=== PATIENT | male | born 1980 | race Caucasian/White ===

== ENCOUNTER 2017-12-13 08:05 | Emergency (ER) | payer BC ==
[2017-12-13] MEDS ORDERED: Ondansetron 4 MG/2 ML SDV IVPUSH ONE (08:26)
[2017-12-13] MEDS ORDERED: Sodium Chloride 0.9% 10 ML Syringe FLUSH PRN (08:26)
[2017-12-13] MEDS ORDERED: Ketorolac 30 MG/ML SDV IVPUSH ONE (08:28)
[2017-12-13] MEDS ORDERED: HYDROmorphone 0.5 MG/0.5 ML SYRINGE IVPUSH ONE ×2 (08:28→09:31)
[2017-12-13] MEDS ORDERED: Sodium Chloride 0.9% 1,000 ML IV SCH (08:30)
--- NOTE | 2017-12-13 08:31 | EDM.PDOC ---
ED HPI GENERAL MEDICAL PROBLEM - General Chief Complaint: Abdominal Pain Stated Complaint: RT LOWER ABD PAIN Time Seen by Provider: 12/13/17 08:24 Source of Information: Reports: Patient History Limitations: Reports: No Limitations - History of Present Illness INITIAL COMMENTS - FREE TEXT/NARRATIVE: The patient presents with right lower abdominal pain. This started this morning. The pain radiates to his back. He has nausea but no vomiting. He has the urge to urinate but he does not go much. He has no history of kidney stones. He has no fever, chills, cough, chest pain, or shortness of breath. He still has his appendix and gallbladder. Onset: Sudden Duration: Hour(s): Location: Reports: Abdomen (right lower abdomen) Quality: Reports: Sharp Severity: Severe Improves with: Reports: None Worsens with: Reports: None Associated Symptoms: Reports: Nausea/Vomiting. Denies: Confusion, Chest Pain, Cough, Fever/Chills, Headaches, Shortness of Breath Right Lower Abdomen Pain Score (Numeric/FACES): 6 - Related Data Allergies Allergy/AdvReac Type Severity Reaction Status Date / Time No Known Allergies Allergy Verified 12/13/17 08:11 Home Meds: Home Meds . [No Known Home Meds] 12/13/17 [History] Past Medical History - Past Health History Medical/Surgical History: Denies Medical/Surgical History Social & Family History - Tobacco Use Smoking Status *Q: Current Every Day Smoker Years of Tobacco use: 20 Packs/Tins Daily: 1 ED ROS GENERAL - Review of Systems Review Of Systems: See Below Constitutional: Reports: No Symptoms HEENT: Reports: No Symptoms Respiratory: Reports: No Symptoms Cardiovascular: Reports: No Symptoms Endocrine: Reports: No Symptoms GI/Abdominal: Reports: Abdominal Pain, Nausea. Denies: Diarrhea, Vomiting : Reports: No Symptoms Musculoskeletal: Reports: No Symptoms Skin: Reports: No Symptoms ED EXAM, GI/ABD - Physical Exam Exam: See Below Exam Limited By: No Limitations General Appearance: Alert, No Apparent Distress Ears: Normal External Exam Nose: Normal Inspection Head: Atraumatic, Normocephalic Neck: Normal Inspection Respiratory/Chest: No Respiratory Distress, Lungs Clear, Normal Breath Sounds Cardiovascular: Regular Rate, Rhythm, No Edema, No Murmur GI/Abdominal Exam: Soft, Non-Tender, No Organomegaly, No Mass Back Exam: Normal Inspection Extremities: Normal Inspection EKG INTERPRETATION EKG Date: 12/13/17 Time: 08:56 Rhythm: NSR Rate (Beats/Min): 87 [place]: Normal P-Wave: Present QRS: Normal ST-T: Normal QT: Normal EKG Interpretation Comments: Bigeminal PVCs Course - Vital Signs Last Recorded V/S: Last Vital Signs Temp 97.0 F 12/13/17 08:12 Pulse 7 L 12/13/17 08:12 Resp 18 12/13/17 08:12 BP 121/67 12/13/17 08:12 Pulse Ox 100 12/13/17 08:12 - Orders/Labs/Meds Orders: Active Orders 24 hr Category Date Time Status EKG Documentation Completion [RC] ASDIRECTED Care 12/13/17 08:58 Active Peripheral IV Care [RC] . DIRECTED Care 12/13/17 08:27 Active UA W/MICROSCOPIC [URIN] Stat Lab 12/13/17 08:40 Ordered Sodium Chloride 0.9% [Normal Saline] 1,000 ml Med 12/13/17 08:30 Active IV ASDIRECTED Sodium Chloride 0.9% [Saline Flush] Med 12/13/17 08:26 Active 10 ml FLUSH ASDIRECTED PRN ED Antiemetic Medication Reflex [OM.PC] Stat Oth 12/13/17 08:27 Ordered Peripheral IV Insertion Adult [OM.PC] Stat Oth 12/13/17 08:26 Ordered EKG 12 Lead [EK] Stat Ther 12/13/17 08:58 Ordered Medication Orders Sodium Chloride (Normal Saline) 1,000 mls @ 125 mls/hr IV ASDIRECTED KAMRYN Last Admin: 12/13/17 08:35 Dose: 125 mls/hr Sodium Chloride (Saline Flush) 10 ml FLUSH ASDIRECTED PRN PRN Reason: Keep Vein Open Last Admin: 12/13/17 08:35 Dose: 10 ml Labs: Laboratory Tests 12/13/17 12/13/17 12/13/17 Range/Units 08:30 08:30 08:40 WBC 10.76 H (4.23-9.07) K/mm3 RBC 5.10 (4.63-6.08) M/mm3 Hgb 15.5 (13.7-17.5) gm/L Hct 45.3 (40.1-51.0) % MCV 88.8 (79.0-92.2) fl MCH 30.4 (25.7-32.2) pg MCHC 34.2 (32.2-35.5) g/dl RDW Std Deviation 43.5 (35.1-43.9) fL Plt Count 266 (163-337) K/mm3 MPV 9.0 L (9.4-12.3) fl Neut % (Auto) 59.1 (34.0-67.9) % Lymph % (Auto) 27.7 (21.8-53.1) % [place] % (Auto) 10.2 (5.3-12.2) % Eos % (Auto) 2.0 (0.8-7.0) Baso % (Auto) 0.5 (0.1-1.2) % Neut # (Auto) 6.37 H (1.78-5.38) K/mm3 Lymph # (Auto) 2.98 (1.32-3.57) K/mm3 Archer # (Auto) 1.10 H (0.30-0.82) K/mm3 Eos # (Auto) 0.21 (0.04-0.54) K/mm3 Baso # (Auto) 0.05 (0.01-0.08) K/mm3 Sodium 143 (136-145) mEq/L Potassium 3.8 (3.5-5.1) mEq/L Chloride 107 (98-107) mEq/L Carbon Dioxide 25 (21-32) mEq/L Anion Gap 14.8 (5-15) BUN 23 H (7-18) mg/dL Creatinine 1.2 (0.7-1.3) mg/dL Est Cr Clr Drug Dosing 80.33 mL/min Estimated GFR (MDRD) > 60 (>60) mL/min BUN/Creatinine Ratio 19.2 H (14-18) Glucose 128 H (74-106) mg/dL Calcium 9.0 (8.5-10.1) mg/dL Total Bilirubin 0.5 (0.2-1.0) mg/dL AST 23 (15-37) U/L ALT 44 (16-63) U/L Alkaline Phosphatase 79 (46-116) U/L Total Protein 7.7 (6.4-8.2) g/dl Albumin 4.2 (3.4-5.0) g/dl Globulin 3.5 gm/dL Albumin/Globulin Ratio 1.2 (1-2) Lipase 114 (73-393) U/L Urine Color Yellow (Yellow) Urine Appearance Slt cloudy H (Clear) Urine pH 6.5 (5.0-8.0) Ur Specific [place] > or = 1.030 (1.005-1.030) Urine Protein 3+ H (Negative) Urine Glucose (UA) Negative (Negative) Urine Ketones 1+ H (Negative) Urine Occult Blood 3+ H (Negative) Urine Nitrite Negative (Negative) Urine Bilirubin 1+ H (Negative) Urine Urobilinogen 1.0 (0.2-1.0) Ur Leukocyte Esterase Negative (Negative) Urine RBC 20-30 H (0-5) /hpf Urine WBC 5-10 H (0-5) /hpf Ur Epithelial Cells 0-5 (0-5) /hpf Urine Bacteria Few (FEW) /hpf Urine Mucus Few (FEW) /hpf Meds: Medications Generic Name Dose Route Start Last Admin Trade Name Freq PRN Reason Stop Dose Admin Sodium Chloride 1,000 mls @ 125 mls/hr 12/13/17 08:30 12/13/17 08:35 Normal Saline IV 125 mls/hr ASDIRECTED KAMRYN Administration Sodium Chloride 10 ml 12/13/17 08:26 12/13/17 08:35 Saline Flush FLUSH 10 ml ASDIRECTED PRN Administration Keep Vein Open Discontinued Medications Generic Name Dose Route Start Last Admin Trade Name Pietro PRN Reason Stop Dose Admin Hydromorphone HCl 0.5 mg 12/13/17 08:28 12/13/17 08:35 Dilaudid IVPUSH 12/13/17 08:29 0.5 mg ONETIME ONE Administration Hydromorphone HCl 0.5 mg 12/13/17 09:31 12/13/17 09:37 Dilaudid IVPUSH 12/13/17 09:32 0.5 mg ONETIME ONE Administration Ketorolac Tromethamine 30 mg 12/13/17 08:28 12/13/17 08:35 Toradol IVPUSH 12/13/17 08:29 30 mg ONETIME ONE Administration Ondansetron HCl 4 mg 12/13/17 08:26 12/13/17 08:35 Zofran IVPUSH 12/13/17 08:27 4 mg ONETIME ONE Administration - Re-Assessments/Exams Free Text/Narrative Re-Assessment/Exam: 12/13/17 08:31 I ordered an IV NS at 125mL/hr, zofran 4mg IV, dilaudid 0.5mg IV, toradol 30mg IV, labs, UA and a CT of his abdomen and pelvis without IV and oral contrast. 12/13/17 09:46 The patient was on the heart monitor and it showed bradycardia with bigeminal PVCs. He was not symptomatic with this. He came out of it shortly. His CBC and CMP look good. His UA shows blood in his urine. He had more pain so I ordered some dilaudid 0.5mg IV. His CT shows at 2.4mm obstructing stone within the distal right ureter is located slightly proximal to the UVJ. 12/13/17 09:51 He feels better. I will discharge him home. Departure - Departure Time of Disposition: 09:55 Disposition: Home, Self-Care 01 Condition: Good Clinical Impression: Kidney stone on right side, Ureteral calculus, right, Ureteral colic - Discharge Information *PRESCRIPTION DRUG MONITORING PROGRAM REVIEWED*: No *COPY OF PRESCRIPTION DRUG MONITORING REPORT IN PATIENT GRAZYNA: No Instructions: Kidney Stones, [id number], Renal Colic, [id number] Referrals: PCP,Kwasi [Primary Care Provider] - Hebert Last PA-C [Physician Manager Reading] - 1 Week Forms: ED Department Discharge Additional Instructions: Drink plenty of fluids. Take motrin or aleve for pain. If that does not work, you can use the hydrocodone for pain. Take the flomax daily until you pass the stone. Please return if you are worse. - My Orders Last 24 Hours: My Active Orders 12/13/17 08:26 Sodium Chloride 0.9% [Saline Flush] 10 ml FLUSH ASDIRECTED PRN Peripheral IV Insertion Adult [OM.PC] Stat 12/13/17 08:27 Peripheral IV Care [RC] . DIRECTED ED Antiemetic Medication Reflex [OM.PC] Stat 12/13/17 08:30 Sodium Chloride 0.9% [Normal Saline] 1,000 ml IV ASDIRECTED 12/13/17 08:40 UA W/MICROSCOPIC [URIN] Stat 12/13/17 08:58 EKG Documentation Completion [RC] ASDIRECTED EKG 12 Lead [EK] Stat - Assessment/Plan Last 24 Hours: My Active Orders 12/13/17 08:26 Sodium Chloride 0.9% [Saline Flush] 10 ml FLUSH ASDIRECTED PRN Peripheral IV Insertion Adult [OM.PC] Stat 12/13/17 08:27 Peripheral IV Care [RC] . DIRECTED ED Antiemetic Medication Reflex [OM.PC] Stat 12/13/17 08:30 Sodium Chloride 0.9% [Normal Saline] 1,000 ml IV ASDIRECTED 12/13/17 08:40 UA W/MICROSCOPIC [URIN] Stat 12/13/17 08:58 EKG Documentation Completion [RC] ASDIRECTED EKG 12 Lead [EK] Stat
--- NOTE | 2017-12-13 09:33 | CT ---
Addendum: In the body of the report it states that there is a small obstructing calculus within the distal left ureter which is incorrect and should be distal right ureter. Impression is correct. --- Addendum1 above dictated on [12/16/2017 09:55] by [Yuri Krishnan Hilton J.] --- --- Addendum1 above signed on [12/16/2017 09:57] by [Yuri Krishnan Hilton J.] --- --- Original report below dictated on [12/13/2017 09:29] by [Yuri Krishnan Hilton J.] --- --- Original report below signed on [12/13/2017 09:29] by [Yuri Krishnan Hilton J.] --- CT abdomen and pelvis Technique: Multiple axial sections were obtained from above the dome of the diaphragm inferiorly through the pubic symphysis. Intravenous and oral contrast was not utilized. Study has been performed as a ureteral stone protocol. Findings: Right ureter is mildly dilated. This finding is caused by a small obstructing calculus located within the distal left ureter approximately 1.5-2 cm from the UVJ. This obstructing stone measures approximately 2.4 mm in size. No other abnormal calcifications are seen along the course of the ureters. No renal calculi are seen. Visualized lung bases show nothing acute. Noncontrast appearance of the liver appears within normal limits. Gallbladder contains no calcified gallstones. Spleen appears within normal limits. Adrenal glands show no nodule. Pancreas is within normal limits. Aorta shows no aneurysmal dilatation. No retroperitoneal adenopathy or mesenteric abnormalities are seen. Appendix appears normal in size. No pelvic mass or adenopathy is seen. No free fluid or inflammatory change is seen. Bone window settings were reviewed which shows an incidental limbus type vertebra off the anterior and superior endplate of L5. Impression: 1. 2.4 mm obstructing stone within the distal right ureter is located slightly proximal to the UVJ. 2. Other incidental finding as noted above. Diagnostic code #3 --- Addendum1 signed ---
== END 2017-12-13 10:00 | disposition home or self-care (01) ==
LOC: JD.ED 08:05
DX: N20.2 Calculus of kidney with calculus of ureter (principal); F17.210 Nicotine dependence, cigarettes, uncomplicated
CPT/HCPCS: 36415; 74176; 80053; 81001; 83690; 85025; 93005; 96361; 96374; 96375; 99285; J1170; J1885; J2405; J7040; J7050; 93010; 99284-25

== ENCOUNTER 2017-12-16 22:17 | Emergency (ER) | payer BC ==
[2017-12-16] MEDS ORDERED: Sodium Chloride 0.9% 10 ML Syringe FLUSH PRN (23:02)
[2017-12-16] MEDS ORDERED: Ondansetron 4 MG/2 ML SDV IVPUSH ONE (23:02)
[2017-12-16] MEDS ORDERED: HYDROmorphone 0.5 MG/0.5 ML SYRINGE IVPUSH ONE (23:03)
[2017-12-16] MEDS ORDERED: Ketorolac 30 MG/ML SDV IVPUSH ONE (23:03)
[2017-12-16] MEDS ORDERED: Sodium Chloride 0.9% 1,000 ML IV SCH (23:15)
[2017-12-17] MEDS ORDERED: HYDROmorphone 0.5 MG/0.5 ML SYRINGE IVPUSH ONE (00:53)
--- NOTE | 2017-12-17 00:59 | EDM.PDOC ---
ED HPI GENERAL MEDICAL PROBLEM - General Chief Complaint: Genitourinary Problem Stated Complaint: poss kidney stone Time Seen by Provider: 12/16/17 22:29 Source of Information: Reports: Patient History Limitations: Reports: No Limitations - History of Present Illness INITIAL COMMENTS - FREE TEXT/NARRATIVE: The patient presents with right flank pain and abdominal pain. He was diagnosed here Thursday with a kidney stone. The stone was 2.4mm and near the bladder. He went home and he was doing fine until tonight. He started having more pain. He tried to take a hydrocodone but that did not help. He has no nausea or vomiting. He has no diarrhea or dysuria. Onset: Gradual Duration: Hour(s): Location: Reports: Back (Right flank to his abdomen) Quality: Reports: Sharp Severity: Severe Improves with: Reports: None Worsens with: Reports: None Associated Symptoms: Reports: No Other Symptoms Treatments METAPHYSICS TEACHER: Reports: Other (see below) Other Treatments METAPHYSICS TEACHER: hydrocodone x 2 tabs Right Flank Pain Score (Numeric/FACES): 5 - Related Data Allergies Allergy/AdvReac Type Severity Reaction Status Date / Time No Known Allergies Allergy Verified 12/16/17 23:53 Home Meds: Home Meds Hydrocodone/Acetaminophen [Hydrocodon-Acetaminophen 5-325] 1 - 2 tab PO Q6H PRN 12/16/17 [History] Loratadine/Pseudoephedrine [Claritin-D 24 Hour Tablet] 1 tab PO ASDIRECTED 12/16 [History] Tamsulosin HCl [Flomax] 0.4 mg PO DAILY 12/16/17 [History] Past Medical History - Past Health History Medical/Surgical History: Denies Medical/Surgical History Genitourinary History: Reports: Renal Calculus Social & Family History - Tobacco Use Smoking Status *Q: Current Every Day Smoker Years of Tobacco use: 15 Packs/Tins Daily: 1 - Caffeine Use Caffeine Use: Reports: Coffee - Recreational Drug Use Recreational Drug Use: No ED ROS GENERAL - Review of Systems Review Of Systems: See Below Constitutional: Reports: No Symptoms HEENT: Reports: No Symptoms Respiratory: Reports: No Symptoms Cardiovascular: Reports: No Symptoms Endocrine: Reports: No Symptoms GI/Abdominal: Reports: Abdominal Pain (Right abdomen). Denies: Diarrhea, Nausea , Vomiting : Reports: Flank Pain (Right). Denies: Dysuria, Frequency, Hematuria ED EXAM, RENAL/ - Physical Exam Exam: See Below Exam Limited By: No Limitations General Appearance: Alert, No Apparent Distress Ears: Normal External Exam Nose: Normal Inspection Head: Atraumatic, Normocephalic Neck: Normal Inspection Respiratory/Chest: No Respiratory Distress, Lungs Clear, Normal Breath Sounds Cardiovascular: Regular Rate, Rhythm, No Edema, No Murmur GI/Abdominal: Soft, Non-Tender, No Organomegaly, No Mass Back Exam: No: CVA Tenderness (L), CVA Tenderness (R) Course - Vital Signs Last Recorded V/S: Last Vital Signs Temp 98.9 F 12/16/17 22:26 Pulse 64 12/16/17 22:26 Resp 20 12/16/17 22:26 BP 143/77 H 12/16/17 22:26 Pulse Ox 96 12/16/17 22:26 - Orders/Labs/Meds Orders: Active Orders 24 hr Category Date Time Status Peripheral IV Care [RC] . DIRECTED Care 12/16/17 23:03 Active UA W/MICROSCOPIC [URIN] Stat Lab 12/16/17 23:02 Stop Req HYDROmorphone [Dilaudid] Med 12/17/17 00:53 Once 0.5 mg IVPUSH ONETIME ONE Sodium Chloride 0.9% [Normal Saline] 1,000 ml Med 12/16/17 23:15 Active IV ASDIRECTED Sodium Chloride 0.9% [Saline Flush] Med 12/16/17 23:02 Active 10 ml FLUSH ASDIRECTED PRN ED Antiemetic Medication Reflex [OM.PC] Stat Oth 12/16/17 23:02 Ordered Peripheral IV Insertion Adult [OM.PC] Stat Oth 12/16/17 23:02 Ordered Medication Orders Sodium Chloride (Normal Saline) 1,000 mls @ 125 mls/hr IV ASDIRECTED KAMRYN Last Admin: 12/16/17 23:30 Dose: 125 mls/hr Sodium Chloride (Saline Flush) 10 ml FLUSH ASDIRECTED PRN PRN Reason: Keep Vein Open Last Admin: 12/16/17 23:34 Dose: 10 ml Labs: Laboratory Tests 12/16/17 Range/Units 23:05 Sodium 140 (136-145) mEq/L Potassium 4.0 (3.5-5.1) mEq/L Chloride 101 (98-107) mEq/L Carbon Dioxide 30 (21-32) mEq/L Anion Gap 13.0 (5-15) BUN 19 H (7-18) mg/dL Creatinine 1.4 H (0.7-1.3) mg/dL Est Cr Clr Drug Dosing 68.85 mL/min Estimated GFR (MDRD) 58 (>60) mL/min BUN/Creatinine Ratio 13.6 L (14-18) Glucose 118 H (74-106) mg/dL Calcium 9.2 (8.5-10.1) mg/dL Total Bilirubin 0.3 (0.2-1.0) mg/dL AST 25 (15-37) U/L ALT 40 (16-63) U/L Alkaline Phosphatase 80 (46-116) U/L Total Protein 7.7 (6.4-8.2) g/dl Albumin 4.1 (3.4-5.0) g/dl Globulin 3.6 gm/dL Albumin/Globulin Ratio 1.1 (1-2) Meds: Medications Generic Name Dose Route Start Last Admin Trade Name Freq PRN Reason Stop Dose Admin Sodium Chloride 1,000 mls @ 125 mls/hr 12/16/17 23:15 12/16/17 23:30 Normal Saline IV 125 mls/hr ASDIRECTED KAMRYN Administration Sodium Chloride 10 ml 12/16/17 23:02 12/16/17 23:34 Saline Flush FLUSH 10 ml ASDIRECTED PRN Administration Keep Vein Open Discontinued Medications Generic Name Dose Route Start Last Admin Trade Name Freq PRN Reason Stop Dose Admin Hydromorphone HCl 0.5 mg 12/16/17 23:03 12/16/17 23:33 Dilaudid IVPUSH 12/16/17 23:04 0.5 mg ONETIME ONE Administration Ketorolac Tromethamine 30 mg 12/16/17 23:03 12/16/17 23:32 Toradol IVPUSH 12/16/17 23:04 30 mg ONETIME ONE Administration Ondansetron HCl 4 mg 12/16/17 23:02 12/16/17 23:30 Zofran IVPUSH 12/16/17 23:03 4 mg ONETIME ONE Administration - Re-Assessments/Exams Free Text/Narrative Re-Assessment/Exam: 12/17/17 00:57 I ordered an IV NS at 125mL/hr, zofran 4mg IV, dilaudid 0.5mg IV and toradol 30mg IV. I also ordered a CMP that did show he was dry with a creatinine of 1.4. He said he was feeling better but some pain came back. I ordered another dose of dilaudid 0.5mg IV and I will discharge him home. Departure - Departure Time of Disposition: 01:00 Disposition: Home, Self-Care 01 Condition: Good Clinical Impression: Kidney stone on right side, Ureteral calculus, right, Ureteral colic - Discharge Information *PRESCRIPTION DRUG MONITORING PROGRAM REVIEWED*: Not Applicable *COPY OF PRESCRIPTION DRUG MONITORING REPORT IN PATIENT GRAZYNA: Not Applicable Referrals: PCP,None [Primary Care Provider] - Hebert Last PA-C [Physician Social Studies Teacher] - 1 Week Additional Instructions: Drink plenty of fluids. Take the flomax daily for 1 week. Take the hydrocodone as needed for pain. Please return if you are worse. Follow up with Hebert Last in our clinic early next week. - My Orders Last 24 Hours: My Active Orders 12/16/17 23:02 UA W/MICROSCOPIC [URIN] Stat Sodium Chloride 0.9% [Saline Flush] 10 ml FLUSH ASDIRECTED PRN ED Antiemetic Medication Reflex [OM.PC] Stat Peripheral IV Insertion Adult [OM.PC] Stat 12/16/17 23:03 Peripheral IV Care [RC] . DIRECTED 12/16/17 23:15 Sodium Chloride 0.9% [Normal Saline] 1,000 ml IV ASDIRECTED 12/17/17 00:53 HYDROmorphone [Dilaudid] 0.5 mg IVPUSH ONETIME ONE - Assessment/Plan Last 24 Hours: My Active Orders 12/16/17 23:02 UA W/MICROSCOPIC [URIN] Stat Sodium Chloride 0.9% [Saline Flush] 10 ml FLUSH ASDIRECTED PRN ED Antiemetic Medication Reflex [OM.PC] Stat Peripheral IV Insertion Adult [OM.PC] Stat 12/16/17 23:03 Peripheral IV Care [RC] . DIRECTED 12/16/17 23:15 Sodium Chloride 0.9% [Normal Saline] 1,000 ml IV ASDIRECTED 12/17/17 00:53 HYDROmorphone [Dilaudid] 0.5 mg IVPUSH ONETIME ONE
== END 2017-12-17 01:22 | disposition home or self-care (01) ==
LOC: JD.ED 22:17 → SUPCPDRO 22:17 → JD.ED 12-17 01:22
DX: N20.2 Calculus of kidney with calculus of ureter (principal); F17.210 Nicotine dependence, cigarettes, uncomplicated
CPT/HCPCS: 36415; 80053; 81001; 96361; 96374; 96375; 96376; 99284; J1170; J1885; J2405; J7040; J7050

== ENCOUNTER 2017-12-21 15:38 | Emergency (ER) | payer BC ==
[2017-12-21] MEDS ORDERED: Tamsulosin 0.4 MG Cap.ER PO ONE (16:33)
[2017-12-21] MEDS ORDERED: Ketorolac 30 MG/ML SDV IM ONE (16:33)
--- NOTE | 2017-12-21 16:40 | EDM.PDOC ---
ED HPI GENERAL MEDICAL PROBLEM - General Chief Complaint: Genitourinary Problem Stated Complaint: KIDNEY STONE/ HURTING AGAIN Time Seen by Provider: 12/21/17 16:10 Source of Information: Reports: Patient History Limitations: Reports: No Limitations - History of Present Illness INITIAL COMMENTS - FREE TEXT/NARRATIVE: Patient is a 37-year-old male to was diagnosed with a 2.4 obstructing stone within the right distal ureter located slightly proximal to the UVJ. Patient presents the ED today complaining of right inguinal and right flank pain. Patient states it came on abruptly this morning after being pain free all weekend. He has taken hydrocodone with no significant relief. He ran out of his Flomax yesterday. Denies any nausea or vomiting. There is no documented fever. No pain with urination. No increased frequency noted. No hematuria. No pain radiating down into his groin. Pain is mild in nature. He has not taken any other additional medications. Denies any additional complaint. right lower abdomen/groin/right back Pain Score (Numeric/FACES): 2 - Related Data Allergies Allergy/AdvReac Type Severity Reaction Status Date / Time No Known Allergies Allergy Verified 12/21/17 15:55 Home Meds: Home Meds Hydrocodone/Acetaminophen [Hydrocodon-Acetaminophen 5-325] 1 - 2 tab PO Q6H PRN 12/16/17 [History] Loratadine/Pseudoephedrine [Claritin-D 24 Hour Tablet] 1 tab PO ASDIRECTED 12/16 [History] Past Medical History - Past Health History Medical/Surgical History: Denies Medical/Surgical History Genitourinary History: Reports: Renal Calculus Social & Family History - Family History Family Medical History: Noncontributory - Tobacco Use Smoking Status *Q: Current Every Day Smoker Years of Tobacco use: 15 Packs/Tins Daily: 1 - Caffeine Use Caffeine Use: Reports: Coffee - Recreational Drug Use Recreational Drug Use: No ED ROS GENERAL - Review of Systems Review Of Systems: ROS reveals no pertinent complaints other than HPI. ED EXAM, GI/ABD - Physical Exam Exam: See Below Exam Limited By: No Limitations General Appearance: Alert, WD/WN, No Apparent Distress Ears: Hearing Grossly Normal Nose: Normal Inspection Throat/Mouth: Normal Voice, No Airway Compromise Neck: Normal Inspection, Supple Respiratory/Chest: No Respiratory Distress, Lungs Clear, Normal Breath Sounds, Chest Non-Tender Cardiovascular: Normal Peripheral Pulses, Regular Rate, Rhythm, No Murmur GI/Abdominal Exam: Normal Bowel Sounds, Soft, No Organomegaly, No Distention, Tender (right inguinal region. negative mcburneys point. pain to the right flank. ) Back Exam: Normal Inspection. No: CVA Tenderness (L), CVA Tenderness (R) Extremities: Normal Inspection, Normal Range of Motion, Non-Tender, No Pedal Edema Neurological: Alert, Oriented, CN II-XII Intact, Normal Cognition, No Motor/ Sensory Deficits Psychiatric: Normal Affect, Normal Mood Skin Exam: Warm, Dry, Intact, Normal Color, No Rash Course - Vital Signs Last Recorded V/S: Last Vital Signs Temp 98.2 F 12/21/17 15:52 Pulse 73 12/21/17 15:52 Resp 18 12/21/17 15:52 BP 130/83 12/21/17 15:52 Pulse Ox 98 12/21/17 15:52 - Orders/Labs/Meds Orders: Active Orders 24 hr Category Date Time Status Abdomen 1V Flat [CR] Stat Exams 12/21/17 16:33 Taken UA W/MICROSCOPIC [URIN] Stat Lab 12/21/17 16:45 Ordered Labs: Laboratory Tests 12/21/17 12/21/17 12/21/17 Range/Units 16:45 16:50 16:50 WBC 13.77 H (4.23-9.07) K/mm3 RBC 4.98 (4.63-6.08) M/mm3 Hgb 15.2 (13.7-17.5) gm/L Hct 44.2 (40.1-51.0) % MCV 88.8 (79.0-92.2) fl MCH 30.5 (25.7-32.2) pg MCHC 34.4 (32.2-35.5) g/dl RDW Std Deviation 42.3 (35.1-43.9) fL Plt Count 250 (163-337) K/mm3 MPV 8.9 L (9.4-12.3) fl Neutrophils % (Manual) 65 H (40-60) % Band Neutrophils % 0 (0-10) % Lymphocytes % (Manual) 19 L (20-40) % Atypical Lymphs % 0 % Monocytes % (Manual) 14 H (2-10) % Eosinophils % (Manual) 2 (0.8-7.0) % Basophils % (Manual) 0 L (0.2-1.2) Platelet Estimate Adequate Plt Morphology Comment Normal RBC Morph Comment Normal Sodium 138 (136-145) mEq/L Potassium 4.3 (3.5-5.1) mEq/L Chloride 103 (98-107) mEq/L Carbon Dioxide 27 (21-32) mEq/L Anion Gap 12.3 (5-15) BUN 18 (7-18) mg/dL Creatinine 1.5 H (0.7-1.3) mg/dL Est Cr Clr Drug Dosing 64.26 mL/min Estimated GFR (MDRD) 53 (>60) mL/min BUN/Creatinine Ratio 12.0 L (14-18) Glucose 88 (74-106) mg/dL Calcium 9.4 (8.5-10.1) mg/dL Total Bilirubin 0.3 (0.2-1.0) mg/dL AST 26 (15-37) U/L ALT 39 (16-63) U/L Alkaline Phosphatase 80 (46-116) U/L Total Protein 7.4 (6.4-8.2) g/dl Albumin 4.0 (3.4-5.0) g/dl Globulin 3.4 gm/dL Albumin/Globulin Ratio 1.2 (1-2) Urine Color Yellow (Yellow) Urine Appearance Clear (Clear) Urine pH 6.0 (5.0-8.0) Ur Specific [place] 1.015 (1.005-1.030) Urine Protein Negative (Negative) Urine Glucose (UA) Negative (Negative) Urine Ketones Negative (Negative) Urine Occult Blood 1+ H (Negative) Urine Nitrite Negative (Negative) Urine Bilirubin Negative (Negative) Urine Urobilinogen 0.2 (0.2-1.0) Ur Leukocyte Esterase Negative (Negative) Urine RBC 0-5 (0-5) /hpf Urine WBC 0-5 (0-5) /hpf Urine WBC Clumps Rare (NOT SEEN) /hpf Ur Epithelial Cells 0-5 (0-5) /hpf Urine Bacteria Rare (FEW) /hpf Urine Mucus Not seen (FEW) /hpf Meds: Medications Discontinued Medications Generic Name Dose Route Start Last Admin Trade Name Freq PRN Reason Stop Dose Admin Ketorolac Tromethamine 30 mg 12/21/17 16:33 12/21/17 16:51 Toradol IM 12/21/17 16:34 30 mg ONETIME ONE Administration Tamsulosin HCl 0.4 mg 12/21/17 16:33 12/21/17 16:51 Flomax PO 12/21/17 16:34 0.4 mg ONETIME ONE Administration - Re-Assessments/Exams Free Text/Narrative Re-Assessment/Exam: Initial labs and studies include: UA , cbc, c14, and a x-ray of the abdomen 1 view. Ordered Flomax and Toradol 30 mg IM. Patient was evaluated 12/13, 12/17. Patient has CT his abdomen obtained indicating a 2.4 mm obstructing stone within the distal right ureter located slightly proximal to the UVJ. UA positive for 1+ blood. Creatinine 1.5 which is mildly elevated above baseline of suspected 1.2 dated 12/13/2017. White blood cell count mildly elevated 13.7 with mild increased with neutrophil percentage with no left shift. Platelet counts normal. X-ray of the abdomen reviewed with Dr. Jameson with possible kidney stone within the bladder. Increased stool noted to the right hemecolon. No obstruction pattern present. Discussed results of labs and x-ray with the patient. He did get some relief of the pain from the toradol. Will have him continue flomax, hydrocodone, and straining all urine voids. If he continues to have issues will have him followup with urology. In addition he will start taking miralax. The patient remained hemodynamically stable while under my care in the E.D. I discussed the concerning symptoms for which to return to the E.D. with the patient. The patient verbalized understanding. All questions were answered. Departure - Departure Time of Disposition: 17:52 Disposition: Home, Self-Care 01 Condition: Good Clinical Impression: Kidney stone, Kidney stone on right side Constipation Qualifiers: Constipation type: drug induced constipation Qualified Code(s): K59.03 - Drug induced constipation - Discharge Information Instructions: Kidney Stones, [id number], Constipation, Adult, High-Fiber Diet , Pain Medicine Instructions, [id number] Referrals: PCP,None [Primary Care Provider] - Forms: ED Department Discharge Additional Instructions: Will have you take Flomax 1 tab every day for the next 7 days. Strain all urine voids. For mild to moderate pain take Tylenol and ibuprofen and alternating fashion. Push the fluids. For severe pain take the hydrocodone as prescribed. No driving while taking the hydrocodone. If pain persists please call and make an appointment to be seen by urologist of your choice in [place] [facility] or at [facility]. Please return back to the ED if you develop any new or worsening symptoms. - My Orders Last 24 Hours: My Active Orders 12/21/17 16:33 Abdomen 1V Flat [CR] Stat 12/21/17 16:45 UA W/MICROSCOPIC [URIN] Stat - Assessment/Plan Last 24 Hours: My Active Orders 12/21/17 16:33 Abdomen 1V Flat [CR] Stat 12/21/17 16:45 UA W/MICROSCOPIC [URIN] Stat
== END 2017-12-21 18:03 | disposition home or self-care (01) ==
LOC: JD.ED 15:38
DX: N20.2 Calculus of kidney with calculus of ureter (principal); K59.03 Drug induced constipation; F17.210 Nicotine dependence, cigarettes, uncomplicated
CPT/HCPCS: 36415; 74018; 80053; 81001; 85007; 85027; 96372; 99284; A9270; J1885

== ENCOUNTER 2022-04-28 14:45 | Emergency (ER) | payer BC ==
[2022-04-28] MEDS ORDERED: Ondansetron 4 MG/2 ML SDV IVPUSH ONE (19:09)
[2022-04-28] MEDS ORDERED: Sodium Chloride 0.9% 10 ML Syringe FLUSH PRN (19:09)
[2022-04-28] MEDS ORDERED: HYDROmorphone 0.5 MG/0.5 ML Syringe IVPUSH ONE (19:10)
[2022-04-28] MEDS ORDERED: Sodium Chloride 0.9% 1,000 ML IV SCH (19:15)
== END 2022-04-28 22:12 | disposition home or self-care (01) ==
LOC: JD.ED 14:45
DX: N20.0 Calculus of kidney (principal)
CPT/HCPCS: 74176; 74176-26; 81001; 96361; 96374; 96375; 99284-25; J1170; J2405; J7030

== ENCOUNTER 2022-04-30 05:39 | Emergency (ER) | payer BC ==
[2022-04-30] MEDS ORDERED: HYDROmorphone 1 MG/ML Syringe IM ONE (05:59)
[2022-04-30] MEDS ORDERED: Tamsulosin 0.4 MG Cap.ER PO ONE (05:59)
== END 2022-04-30 06:55 | disposition home or self-care (01) ==
LOC: JD.ED 05:39
DX: N20.1 Calculus of ureter (principal); F17.210 Nicotine dependence, cigarettes, uncomplicated
CPT/HCPCS: 96372; 99283; A9270; J1170

== ENCOUNTER 2023-06-21 05:29 | Emergency (ER) | payer BC | END 2023-06-21 06:54 | disposition home or self-care (01) | LOC: JD.ED 05:29 | DX: S43.401A Unspecified sprain of right shoulder joint, initial encounter (principal); F17.210 Nicotine dependence, cigarettes, uncomplicated; Z79.899 Other long term (current) drug therapy; X58.XXXA Exposure to other specified factors, initial encounter | CPT/HCPCS: 73030-26-RT; 73030-RT; 99283 ==